=== PATIENT | female | born 1995 | race African-American/Black ===

== ENCOUNTER 2021-04-11 12:35 | Emergency (ER) | payer OTHER ==
[~2021-04-11] VITALS: Ht 167.6 cm; Wt 69.0 kg
[2021-04-11] MEDS ORDERED: ALBUTEROL (0.083%) 2.5MG/3ML NEB HHN ONE (12:45)
[2021-04-11] MEDS ORDERED: ALBU6.7H9 INH (14:17)
[2021-04-11] MEDS ORDERED: SODIUM CHLORIDE 0.9% 1,000 ML IV ONE (14:30)
[2021-04-11] MEDS ORDERED: KETOROLAC 15MG/ML VIAL IV ONE (14:30)
[2021-04-11 14:52] LABS: BASOPHILS % 0.1 % (0.0-2.0); EOSINOPHILS % 0.9 % (0.0-5.0); HEMATOCRIT. 37.8 % (36.0-48.0); HEMOGLOBIN. 12.1 g/dL (12.0-16.0); LYMPHOCYTES % 22.4 % (20.0-50.0); MEAN CORPUSCULAR HEMOGLOBIN 25.5 pg (28.0-32.0); MEAN CORPUSCULAR VOLUME 79.7 fL (81.0-99.0); MEAN PLATELET VOLUME 7.7 fl (7.4-10.4); MONOCYTES % 9.8 % (2.0-8.0); NEUTROPHILS % 66.8 % (40.0-76.0); PLATELET 284 x1000/uL (130-400); RED BLOOD CELL COUNT 4.74 mill/uL (4.2-5.4); RED CELL DISTRIBUTION WIDTH 12.7 % (11.6-14.6)
[2021-04-11] MEDS ORDERED: DEXAMETHASONE 4MG TABLET PO NR (15:00)
[2021-04-11 15:01] LABS: CHLORIDE 110 mEq/L (98-107)
[2021-04-11] MEDS ORDERED: SODIUM CHLORIDE 0.9% 1,000 ML IV NR (16:45)
[2021-04-11 19:12] VITALS: BP 140/80
== END 2021-04-11 19:15 | disposition home or self-care (01) ==
LOC: ER 13:03
DX: J45.901 Unspecified asthma with (acute) exacerbation (principal); B34.9 Viral infection, unspecified; J02.9 Acute pharyngitis, unspecified; Z20.822 Contact with and (suspected) exposure to COVID-19; F17.290 Nicotine dependence, other tobacco product, uncomplicated; F12.10 Cannabis abuse, uncomplicated; J45.909 Unspecified asthma, uncomplicated
CPT/HCPCS: 36415; 71045; 80048; 81025; 85025; 87426; 87804; 96361; 96374; 99285; J1885; J7030; J8540

== ENCOUNTER 2021-08-29 04:53 | Emergency (ER) | payer OTHER ==
[~2021-08-29] VITALS: Ht 152.4 cm; Wt 75.0 kg
[~2021-08-29 04:53] MED LIST: ALBU6.7H9 INH
[2021-08-29] MEDS ORDERED: ALBUTEROL (0.083%) 2.5MG/3ML NEB HHN STA (05:17)
[2021-08-29] MEDS ORDERED: METHYLPREDNISOLONE SOD SUCC 125 MG/2 ML VIAL IV STA (05:17)
[2021-08-29] MEDS ORDERED: IPRATROPIUM BROMIDE (0.02%) 0.5MG/2.5ML NEB HHN STA (05:17)
[2021-08-29] MEDS ORDERED: SODIUM CHLORIDE 0.9% 1,000 ML IV ONE (05:30)
[2021-08-29 06:12] LABS: BASOPHILS % 0.3 % (0.0-2.0); EOSINOPHILS % 2.9 % (0.0-5.0); HEMATOCRIT. 40.2 % (36.0-48.0); HEMOGLOBIN. 13.1 g/dL (12.0-16.0); LYMPHOCYTES % 65.3 % (20.0-50.0); MEAN CORPUSCULAR HEMOGLOBIN 26.2 pg (28.0-32.0); MEAN CORPUSCULAR VOLUME 80.4 fL (81.0-99.0); MONOCYTES % 12.4 % (2.0-8.0); NEUTROPHILS % 19.1 % (40.0-76.0); PLATELET 243 x1000/uL (130-400); RED CELL DISTRIBUTION WIDTH 12.3 % (11.6-14.6)
[2021-08-29 06:19] LABS: CHLORIDE 111 mEq/L (98-107)
[2021-08-29 06:22] LABS: HCG SCREEN NEGATIVE
[2021-08-29] MEDS ORDERED: IPRATROPIUM BROMIDE (0.02%) 0.5MG/2.5ML NEB ONE (06:54)
[2021-08-29] MEDS ORDERED: ALBUTEROL (0.083%) 2.5MG/3ML NEB ONE (06:54)
[2021-08-29] MEDS ORDERED: ALBU6.7H9 INH (07:47)
[2021-08-29] MEDS ORDERED: P50 MT (07:47)
[2021-08-29 10:00] VITALS: BP 137/74
== END 2021-08-29 10:10 | disposition home or self-care (01) ==
LOC: ER 04:53
DX: J45.901 Unspecified asthma with (acute) exacerbation (principal); E05.90 Thyrotoxicosis, unspecified without thyrotoxic crisis or storm; Z87.891 Personal history of nicotine dependence; F12.10 Cannabis abuse, uncomplicated
CPT/HCPCS: 36415; 71045; 80053; 81025; 84703; 85025; 93005; 94640; 96361; 96374; 99285; J2930; J7030; Z7610

== ENCOUNTER 2022-01-17 11:00 | Emergency (ER) | payer OTHER ==
[~2022-01-17] VITALS: Ht 167.6 cm; Wt 91.0 kg
[~2022-01-17 11:00] MED LIST changes: +P50 MT
[2022-01-17 11:05] VITALS: BP 121/57
[2022-01-17] MEDS ORDERED: ACETAMINOPHEN 325MG TABLET PO PRN (12:30)
[2022-01-17 12:54] LABS: CLARITY URINE CLEAR (CLEAR); COLOR URINE YELLOW (YELLOW); KETONES URINE NEGATIVE (NEGATIVE); LEUKOCYTE ESTERASE URINE 1+ (NEGATIVE); NITRITE URINE NEGATIVE (NEGATIVE); OCCULT BLOOD URINE NEGATIVE (NEGATIVE); PROTEIN URINE NEGATIVE (NEGATIVE); SPECIFIC GRAVITY URINE 1.015 (1.005-1.030)
[2022-01-17 12:55] LABS: BASOPHILS % 0.1 % (0.0-2.0); EOSINOPHILS % 1.4 % (0.0-5.0); HEMATOCRIT. 32.4 % (36.0-48.0); HEMOGLOBIN. 11.5 g/dL (12.0-16.0); LYMPHOCYTES % 39.5 % (20.0-50.0); MEAN CORPUSCULAR HEMOGLOBIN 28.7 pg (28.0-32.0); MEAN CORPUSCULAR VOLUME 80.8 fL (81.0-99.0); MEAN PLATELET VOLUME 7.8 fl (7.4-10.4); MONOCYTES % 9.2 % (2.0-8.0); NEUTROPHILS % 49.8 % (40.0-76.0); PLATELET 240 x1000/uL (130-400); RED BLOOD CELL COUNT 4.01 mill/uL (4.2-5.4); RED CELL DISTRIBUTION WIDTH 13.3 % (11.6-14.6)
[2022-01-17 13:07] LABS: CHLORIDE 104 mEq/L (98-107)
[2022-01-17 13:33] LABS: B-HCG QUANTITATIVE 41854 mIU/mL (<3)
[2022-01-17] MEDS ORDERED: CEPH250C2 MT (14:17)
== END 2022-01-17 14:29 | disposition home or self-care (01) ==
LOC: ER 11:00
DX: O23.42 Unspecified infection of urinary tract in pregnancy, second trimester (principal); N39.0 Urinary tract infection, site not specified; O26.892 Other specified pregnancy related conditions, second trimester; R06.02 Shortness of breath; E87.1 Hypo-osmolality and hyponatremia; Z3A.15 15 weeks gestation of pregnancy
CPT/HCPCS: 36415; 76805; 80053; 81003; 81025; 84702; 85025; 86850; 86900; 99284

== ENCOUNTER 2023-03-02 20:52 | Emergency (ER) | payer MEDICAID, OTHER ==
[~2023-03-02] VITALS: Ht 162.6 cm; Wt 68.0 kg
[~2023-03-02 20:52] MED LIST changes: +ALBU6.7H3 INH; -ALBU6.7H9 INH; +CEPH250C2 MT
[2023-03-02 21:15] VITALS: BP 148/79; O2SAT 100
[2023-03-02 22:00] VITALS: TEMP 98.4
[2023-03-02] MEDS ORDERED: IPRATROPIUM BROMIDE (0.02%) 0.5MG/2.5ML NEB HHN STA (22:00)
[2023-03-02] MEDS ORDERED: ACETAMINOPHEN 325MG TABLET PO STA (22:00)
[2023-03-02] MEDS ORDERED: ALBUTEROL (0.083%) 2.5MG/3ML NEB HHN STA (22:00)
[2023-03-02] MEDS ORDERED: METHYLPREDNISOLONE SOD SUCC 125MG/2ML (ACT-O-VIAL) IM STA (22:00)
[2023-03-02 22:20] VITALS: PULSE 97; RESP 20
[2023-03-02] MEDS ORDERED: ALBU18HF2 IH (23:30)
[2023-03-02] MEDS ORDERED: ACET-2708 PO (23:30)
[2023-03-02] MEDS ORDERED: P20 PO (23:30)
== END 2023-03-03 00:07 | disposition home or self-care (01) ==
LOC: ER 20:52
DX: J45.901 Unspecified asthma with (acute) exacerbation (principal); J06.9 Acute upper respiratory infection, unspecified; F12.10 Cannabis abuse, uncomplicated; Z79.899 Other long term (current) drug therapy; Z20.822 Contact with and (suspected) exposure to COVID-19
CPT/HCPCS: 81025; 94640; 96372; 99283; 87426; J2930; Z7610 ×2; C9803

== ENCOUNTER 2025-04-12 02:55 | Emergency (ER) | payer OTHER ==
[~2025-04-12] VITALS: Ht 172.7 cm; Wt 100.0 kg
[~2025-04-12 02:55] MED LIST changes: +ACET-2708 PO; +ALBU18HF2 IH; +P20 PO
[2025-04-12] MEDS: METHYLPREDNISOLONE SOD SUCC 125MG/2ML (ACT-O-VIAL) IV ONE (03:57)
[2025-04-12] MEDS: IPRATROPIUM BROMIDE (0.02%) 0.5MG/2.5ML NEB HHN ONE (04:20)
[2025-04-12] MEDS: ALBUTEROL (0.083%) 2.5MG/3ML NEB HHN ONE (04:20)
[2025-04-12 04:21] VITALS: PULSE 80; RESP 20; O2SAT 100
[2025-04-12 04:55] VITALS: BP 141/80; PULSE 94; RESP 19; TEMP 36.7; O2SAT 98
[2025-04-12] MEDS ORDERED: P20 MT (04:56)
[2025-04-12] MEDS ORDERED: ALBU90AE INH (04:56)
== END 2025-04-12 05:32 | disposition home or self-care (01) ==
LOC: ER 02:55
DX: J45.901 Unspecified asthma with (acute) exacerbation (principal); F12.90 Cannabis use, unspecified, uncomplicated; E03.9 Hypothyroidism, unspecified; Z79.52 Long term (current) use of systemic steroids; Z79.899 Other long term (current) drug therapy; Z20.822 Contact with and (suspected) exposure to COVID-19
CPT/HCPCS: 71045; 94640; 93005; 98960; 96374; 99285; 87426; J2919; Z7610 ×2; 94070